=== PATIENT | male | born 1945 | race Caucasian/White ===

== ENCOUNTER 2016-06-10 22:10 | Emergency (ER) | payer OTHER ==
[~2016-06-10] VITALS: Ht 172.7 cm; Wt 91.8 kg
[~2016-06-10 22:10] MED LIST: ASPIR-LOW81 MG PO; CLONIDINE HCL0.1 MG PO; CYMBALTA60 MG PO; DAILY VITAMIN1 EAC8 PO; ECOTRIN325 MG PO; FLEET ENEMA-AD118 ML PR; GARLIC500 MG PO; GEMFIBROZIL600 MG PO; HUMULIN N100 UNITS/ SC; JANUVIA25 M1 PO; LANTUS 3 M100 UNITS1 SC; LASIX20 MG PO; LEVEMIR100 UNIT/2 SC; LIPITOR10 MG PO; LOPID600 MG PO; LOPRESSOR100 M1 PO; MIRALAX17 GM PO; NEXIUM20 MG PO; NOVOLOG PE100 UNITS/ SC; OMEGA-31000 M1 PO; SERTRALINE HCL25 MG PO; STOOL SOFTENER100 MG PO; TOPROL XL100 MG PO; ULTRAM50 MG PO; VENTOLIN HFA18 GM IH; XYZAL5 MG PO; ZETIA10 MG PO; ZIPRASIDONE HCL20 MG PO
[2016-06-10 22:30] LABS: POINT-OF-CARE METER ID UU13113778
[2016-06-10 23:16] LABS: HEMATOCRIT 40.7 % (38.0-50.0); MCH 28.6 PG (29.0-34.0); MCHC 34.9 G/DL (30.0-36.0); MCV 82.1 FL (86-99); MEAN PLAT.VOLUME 9.1 uM^3 (9.0-12.4); PLATELET COUNT 260 K/uL (156-360); RBC DIS.WIDTH-CV 13.2 % (11.8-14.6); RBC DIS.WIDTH-SD 38.6 % (39-53); RED BLOOD COUNT 4.96 M/uL (4.00-5.50); WHITE BLOOD COUNT 9.4 K/uL (4.1-10.2)
[2016-06-10 23:27] LABS: CHLORIDE 103 mEq/L (99-109); POTASSIUM 4.5 mEq/L (3.7-5.4); SODIUM 141 mEq/L (136-147)
[2016-06-10 23:29] LABS: GLUCOSE 61 mg/dL (70-99)
[2016-06-10 23:30] LABS: ANION GAP 11 MEQ/L (2-14)
[2016-06-10 23:31] LABS: TOTAL BILIRUBIN 0.3 mg/dL (0.0-1.0)
[2016-06-10 23:32] LABS: ALKALINE PHOSPHATASE 106 IU/L (3-129)
[2016-06-10 23:33] LABS: GFR ESTIMATE (CALCULATED) > 59 mL/min/
[2016-06-10 23:34] LABS: UREA NITROGEN (BUN) 19 mg/dL (9-23)
[2016-06-10 23:36] LABS: LIPASE 40 U/L (1.0-51.0)
[2016-06-11 00:49] LABS: POINT-OF-CARE METER ID UU14100415; POINT-OF-CARE USER ID PUTMLD10
[2016-06-11 01:46] LABS: POINT-OF-CARE METER ID UU14100415
[2016-06-11 02:48] LABS: POINT-OF-CARE METER ID UU13113702
[2016-06-11 04:04] LABS: POINT-OF-CARE METER ID UU14100415; POINT-OF-CARE USER ID 611181311
[2016-06-11 04:20] VITALS: BP 1138/72
== END 2016-06-11 04:30 | disposition home or self-care (01) ==
LOC: EME 22:10
PROVIDERS: Emergency Medicine
DX: E11.649 Type 2 diabetes mellitus with hypoglycemia without coma (principal); T38.3X1A Poisoning by insulin and oral hypoglycemic [antidiabetic] drugs, accidental (unintentional), initial encounter; Z79.4 Long term (current) use of insulin; Z87.891 Personal history of nicotine dependence; Z95.5 Presence of coronary angioplasty implant and graft
CPT/HCPCS: 80053; 82948; 83690; 85027; 99281; 99285; J7042

== ENCOUNTER 2016-11-13 23:34 | Emergency (ER) | payer OTHER ==
[~2016-11-13] VITALS: Ht 165.1 cm; Wt 87.5 kg
[2016-11-13 23:53] LABS: POINT-OF-CARE METER ID UU13113778
[2016-11-14 00:40] LABS: POINT-OF-CARE METER ID UU13113778
[2016-11-14 00:57] LABS: HEMATOCRIT 41.7 % (38.0-50.0); MCH 29.5 PG (29.0-34.0); MCV 84.2 FL (86-99); MEAN PLAT.VOLUME 8.8 uM^3 (9.0-12.4); PLATELET COUNT 256 K/uL (156-360); RBC DIS.WIDTH-SD 39.8 % (39-53); RED BLOOD COUNT 4.95 M/uL (4.00-5.50); WHITE BLOOD COUNT 10.9 K/uL (4.1-10.2)
[2016-11-14 01:12] LABS: POINT-OF-CARE METER ID UU13113778
[2016-11-14 01:14] LABS: CHLORIDE 108 mEq/L (99-109); POTASSIUM 4.3 mEq/L (3.7-5.4); SODIUM 146 mEq/L (136-147)
[2016-11-14 01:16] LABS: GLUCOSE 48 mg/dL (70-99)
[2016-11-14 01:17] LABS: ANION GAP 15 MEQ/L (2-14)
[2016-11-14 01:18] LABS: TOTAL BILIRUBIN 0.3 mg/dL (0.0-1.0)
[2016-11-14 01:20] LABS: ALKALINE PHOSPHATASE 113 IU/L (3-129); GFR ESTIMATE (CALCULATED) 58 mL/min/
[2016-11-14 01:21] LABS: UREA NITROGEN (BUN) 36 mg/dL (9-23)
[2016-11-14 02:24] LABS: POINT-OF-CARE METER ID UU14100415
[2016-11-14 03:23] LABS: POINT-OF-CARE METER ID UU14100415
[2016-11-14 04:35] VITALS: BP 137/80
== END 2016-11-14 04:36 | disposition home or self-care (01) ==
LOC: EME 23:34
PROVIDERS: Emergency Medicine; Physician Assistant
DX: E11.649 Type 2 diabetes mellitus with hypoglycemia without coma (principal); T38.3X1A Poisoning by insulin and oral hypoglycemic [antidiabetic] drugs, accidental (unintentional), initial encounter; Z79.4 Long term (current) use of insulin; I10 Essential (primary) hypertension; E11.40 Type 2 diabetes mellitus with diabetic neuropathy, unspecified; Z95.5 Presence of coronary angioplasty implant and graft; Z87.891 Personal history of nicotine dependence
CPT/HCPCS: 80053; 82948; 85027; 99281; 99285

== ENCOUNTER 2017-01-31 15:52 | Inpatient (IN) | payer OTHER ==
[~2017-01-31] VITALS: Ht 170.2 cm; Wt 86.5 kg
[2017-01-31 16:54] LABS: EOSINOPHIL (%) 1.3 % (0-5); EOSINOPHIL COUNT 0.1 K/uL (0-0.3); HEMATOCRIT 39.6 % (38.0-50.0); IMMATURE GRANULOCYTE (%) 0.2 % (0.0-0.7); INSTRUMENT ABS NEUTROPHIL CT 7.2 K/uL; MCH 28.4 PG (29.0-34.0); MCHC 33.6 G/DL (30.0-36.0); MCV 84.4 FL (86-99); MEAN PLAT.VOLUME 9.3 uM^3 (9.0-12.4); MONOCYTE (%) 7.5 % (3-12); MONOCYTE COUNT 0.7 K/uL (0-0.8); NEUTROPHIL (%) 79.4 % (45-76); NEUTROPHIL COUNT 7.2 K/uL (1.8-6.4); PLATELET COUNT 209 K/uL (156-360); RBC DIS.WIDTH-SD 39.8 % (39-53); RED BLOOD COUNT 4.69 M/uL (4.00-5.50); WHITE BLOOD COUNT 9.1 K/uL (4.1-10.2)
[2017-01-31 17:02] LABS: INTER. NORMALIZED RATIO 1.1; PROTHROMBIN TIME 12.5 SEC (10.2-12.9)
[2017-01-31 17:03] LABS: CHLORIDE 106 mEq/L (99-109); POTASSIUM 3.8 mEq/L (3.7-5.4); SODIUM 139 mEq/L (136-147)
[2017-01-31 17:04] LABS: MAGNESIUM 1.7 mg/dL (1.3-2.7)
[2017-01-31 17:05] LABS: GLUCOSE 183 mg/dL (70-99)
[2017-01-31 17:07] LABS: ANION GAP 8 MEQ/L (2-14)
[2017-01-31 17:09] LABS: GFR ESTIMATE (CALCULATED) 35 mL/min/
[2017-01-31 17:10] LABS: UREA NITROGEN (BUN) 24 mg/dL (9-23)
[2017-01-31 17:17] LABS: TROP-I INTERPRETATION NEGATIVE; TROPONIN-I 0.04 ng/mL (0.0-0.30)
[2017-01-31 19:45] LABS: ADD MIUA? YES; BILIRUBIN NEGATIVE; BLOOD NEGATIVE; COLOR YELLOW ((YELLOW)); GLUCOSE (STRIP) >=500; KETONES NEGATIVE; LEUKOCYTES NEGATIVE; NITRITE NEGATIVE; PROTEIN (STRIP) 100; SPECIFIC GRAVITY 1.012 (1.000-1.030); UROBILINOGEN 0.2 MG/DL (0.2-1.0)
[2017-01-31 20:03] LABS: BACTERIA 1+ /HPF; EPITHELIAL CELLS RARE /HPF; FINE GRANULAR CASTS 0-5 /LPF; HYALINE CASTS 0-5 /LPF; MUCUS NONE SEEN /LPF; RED BLOOD CELLS 0-5 /HPF (0-5); UCUL ADDED? NO; WHITE BLOOD CELLS 0-5 /HPF (0-5)
[2017-02-01 00:19] VITALS: BP 187/95
[2017-02-01 00:50] LABS: POINT-OF-CARE METER ID UU13113717
[2017-02-01 01:46] LABS: HDL CHOLESTEROL 28 MG/DL (Desirable>=40); LDL CHOLESTEROL 92 mg/dL (Desirable<100); NON-HDL CHOLESTEROL 122 mg/dL (Desirable<160); TOTAL CHOLESTEROL 150 mg/dL (Desirable<200); TRIGLYCERIDES 149 MG/DL (Normal: <150)
[2017-02-01 04:06] VITALS: BP 138/71
[2017-02-01 06:58] LABS: HEMATOCRIT 38.3 % (38.0-50.0); MCH 29.4 PG (29.0-34.0); MCHC 34.2 G/DL (30.0-36.0); MCV 86.1 FL (86-99); MEAN PLAT.VOLUME 9.8 uM^3 (9.0-12.4); PLATELET COUNT 204 K/uL (156-360); RBC DIS.WIDTH-CV 13.1 % (11.8-14.6); RBC DIS.WIDTH-SD 40.1 % (39-53); RED BLOOD COUNT 4.45 M/uL (4.00-5.50); WHITE BLOOD COUNT 8.9 K/uL (4.1-10.2)
[2017-02-01 07:38] LABS: Estimated Average Glucose 174 mg/dL (70-123); HEMOGLOBIN A1c (GLYCOHEMOGLOB) 7.7 % HGB (Below 5.7)
[2017-02-01 08:00] VITALS: BP 196/76
[2017-02-01 12:00] VITALS: BP 148/78
[2017-02-01 13:08] LABS: ANION GAP 9 MEQ/L (2-14); CHLORIDE 107 MEQ/L (99-109); GFR ESTIMATE (CALCULATED) 49 mL/min/; GLUCOSE 231 mg/dL (70-99); POTASSIUM 3.9 MEQ/L (3.7-5.4); SAMPLE HEMOLYSIS CHECK 0; SAMPLE ICTERIC CHECK 0; SAMPLE LIPEMIA CHECK 0; SODIUM 142 MEQ/L (136-147); UREA NITROGEN (BUN) 24 mg/dL (9-23)
[2017-02-01] MEDS ORDERED: ACID REDUCER 1150 MG PO (14:06)
[2017-02-01] MEDS ORDERED: ACIDOPHILUS1 EAC1 PO (14:07)
[2017-02-01] MEDS ORDERED: LIPITOR20 MG PO (14:09)
[2017-02-01] MEDS ORDERED: IBUPROFEN400 MG PO (14:09)
[2017-02-01] MEDS ORDERED: CLOPIDOGREL75 MG PO (14:10)
[2017-02-01] MEDS ORDERED: ANTIVERT12.5 MG PO (14:10)
[2017-02-01] MEDS ORDERED: NEURONTIN300 MG PO ×3 (14:11)
[2017-02-01] MEDS ORDERED: CLARITIN,ALAVAR10 MG PO (14:12)
[2017-02-01] MEDS ORDERED: ARTIFICIAL TEAR15 M1 BOTH EYES (14:12)
[2017-02-01] MEDS ORDERED: CYANOCOBALAM1000 MCG PO (14:13)
[2017-02-01] MEDS ORDERED: ARICEPT10 MG PO (14:13)
[2017-02-01] MEDS ORDERED: VITAMIN D31000 UNIT PO (14:13)
[2017-02-01] MEDS ORDERED: MEMANTINE HCL10 MG PO (14:14)
[2017-02-01] MEDS ORDERED: FISH OIL 1,0001 EAC7 PO (14:14)
[2017-02-01] MEDS ORDERED: EUCERIN CREME57 GM TP (14:15)
[2017-02-01] MEDS ORDERED: NOVOLOG PE100 UNITS/ SC (14:20)
[2017-02-01] MEDS ORDERED: SERTRALINE HCL50 MG PO (14:20)
[2017-02-01] MEDS ORDERED: LEVEMIR100 UNIT/2 SC (14:20)
[2017-02-01 15:56] VITALS: BP 197/80
[2017-02-01 16:42] LABS: POINT-OF-CARE METER ID UU14188625
[2017-02-01 20:09] VITALS: BP 182/81
[2017-02-01 21:15] LABS: POINT-OF-CARE METER ID UU14188625
[2017-02-02 01:30] VITALS: BP 147/70
[2017-02-02 07:07] LABS: ANION GAP 9 MEQ/L (2-14); CHLORIDE 105 MEQ/L (99-109); GFR ESTIMATE (CALCULATED) > 59 mL/min/; GLUCOSE 197 mg/dL (70-99); POTASSIUM 3.9 MEQ/L (3.7-5.4); SAMPLE HEMOLYSIS CHECK 0; SAMPLE ICTERIC CHECK 0; SAMPLE LIPEMIA CHECK 0; SODIUM 140 MEQ/L (136-147); UREA NITROGEN (BUN) 28 mg/dL (9-23)
[2017-02-02 07:38] VITALS: BP 183/81
[2017-02-02] MEDS ORDERED: CEPHALEXIN500 MG PO (12:17)
[2017-02-02] MEDS ORDERED: LOPRESSOR100 M1 PO (12:19)
[2017-02-02] MEDS ORDERED: SERTRALINE HCL25 MG PO (12:19)
[2017-02-02] MEDS ORDERED: CLONIDINE HCL0.1 MG PO (12:21)
== END 2017-02-02 15:18 | disposition home health service (06) | DRG 683 ==
LOC: EME 15:52 → EDOF 21:59 → 5SOUTH 21:59 → ENRESERV 22:01 → 5SOUTH 23:59
PROVIDERS: Emergency Medicine; Family Medicine; Hospitalist
DX: N17.9 Acute kidney failure, unspecified (principal); L03.115 Cellulitis of right lower limb; E11.22 Type 2 diabetes mellitus with diabetic chronic kidney disease; E11.42 Type 2 diabetes mellitus with diabetic polyneuropathy; E78.5 Hyperlipidemia, unspecified; E86.0 Dehydration; F03.90 Unspecified dementia, unspecified severity, without behavioral disturbance, psychotic disturbance, mood disturbance, and anxiety; I12.9 Hypertensive chronic kidney disease with stage 1 through stage 4 chronic kidney disease, or unspecified chronic kidney disease; I25.10 Atherosclerotic heart disease of native coronary artery without angina pectoris; R42 Dizziness and giddiness; I69.398 Other sequelae of cerebral infarction; I95.1 Orthostatic hypotension; N18.9 Chronic kidney disease, unspecified; I65.23 Occlusion and stenosis of bilateral carotid arteries; Z79.82 Long term (current) use of aspirin; Z79.84 Long term (current) use of oral hypoglycemic drugs; Z95.5 Presence of coronary angioplasty implant and graft; Z90.49 Acquired absence of other specified parts of digestive tract; Z79.4 Long term (current) use of insulin
CPT/HCPCS: 70450; 70551; 71010; 80048; 80061; 81003; 82948; 83036; 83605; 83735; 84484; 85025; 85027; 85610; 85730; 87040; 92610 GN; 93005; 93306; 93880; 99281; 99285; J0360; J1644; J1815; J7030